=== PATIENT | female | born 1950 | race Caucasian/White ===

== ENCOUNTER 2019-07-30 03:26 | Inpatient (IN) ==
[2019-07-30] MEDS ORDERED: PIPERACILLIN/TAZOBACTAM 3,375 MG in SODIUM CHLORIDE 0.9% 100 ML IV STA (04:06)
[2019-07-30] MEDS ORDERED: ONDANSETRON 4 MG/2 ML VIAL IV ONE (04:06)
[2019-07-30] MEDS ORDERED: MORPHINE 4 MG/1 ML VIAL IV STA (04:06)
[2019-07-30 04:47] LABS: Basophils % 0.2 % (0.0-0.8); Eosinophils % 0.1 % (0.00-10.9); Hemoglobin 14.5 GM/DL (12.0-16.0); Immature Granulocytes % 0.3 %; Immature Granulocytes Absolute 0.04 #; Lymphocytes # 0.8 10*3/uL (1.4-4.0); Mean Corpuscular Volume 86.8 FL (87-102); Mean Platelet Volume 8.7 FL (9.6-12.0); Monocytes % 8.5 % (1.7-12.7); Neutrophils % 83.9 % (38.7-73.9); Platelet Count 290 T/CUMM (130-400); Red Blood Count 5.07 MC/CUMM (3.8-5.5); Red Cell Distribution Width 13.8 % (9.3-17.3); White Blood Count 11.7 T/CUMM (4-12)
[2019-07-30 05:10] LABS: Albumin 3.3 G/DL (3.4-5.0); Bilirubin,Total 0.6 MG/DL (0.2-1.0); Calcium 9.5 MG/DL (8.5-10.1); Osmolality,Calculated 264.4 MOS/KG (273-304); Total Protein 8.4 G/DL (6.4-8.3)
[2019-07-30] MEDS: DEXTROSE 5% NACL 0.45% 1,000 ML IV SCH ×2 (05:55→18:15)
[2019-07-30 09:06] LABS: INR 2.3
[2019-07-30 09:20] LABS: PT Patient Result 24.5 SECS (9.6-12.2)
[2019-07-30] MEDS: PANTOPRAZOLE 40 MG VIAL IV SCH (10:17)
[2019-07-30] MEDS: MORPHINE 4 MG/1 ML VIAL IV PRN ×3 (10:17→19:51)
[2019-07-30] MEDS: clonazePAM 0.5 MG TABLET PO SCH ×3 (11:30→20:36)
[2019-07-30] MEDS: MECLIZINE 12.5 MG TABLET PO SCH ×2 (11:30→20:37)
[2019-07-30] MEDS: GABAPENTIN 300 MG CAPSULE PO SCH ×4 (11:31→20:36)
[2019-07-30] MEDS: LEVOTHYROXINE 75 MCG TABLET PO SCH (11:31)
[2019-07-30] MEDS: ATENOLOL 25 MG TABLET PO SCH (11:31)
[2019-07-30] MEDS: PIPERACILLIN/TAZOBACTAM 3,375 MG in SODIUM CHLORIDE 0.9% 100 ML IV SCH ×2 (13:17→21:10)
[2019-07-30] MEDS ORDERED: WARFARIN 5 MG TABLET PO SCH (18:00)
[2019-07-30] MEDS: ONDANSETRON 4 MG/2 ML VIAL IV PRN (19:51)
[2019-07-30] MEDS: POTASSIUM CHLORIDE 20 MEQ TABLET PO SCH (20:36)
[2019-07-30] MEDS: ASCORBIC ACID 500 MG TABLET PO SCH (20:36)
[2019-07-30] MEDS: CETIRIZINE 10 MG TABLET PO SCH (20:36)
[2019-07-30] MEDS: ACETAMINOPHEN 325 MG TABLET PO PRN (20:37)
[2019-07-31] MEDS: ONDANSETRON 4 MG/2 ML VIAL IV PRN (01:55)
[2019-07-31] MEDS: MORPHINE 4 MG/1 ML VIAL IV PRN ×2 (01:55→14:39)
[2019-07-31 05:11] LABS: Basophils % 0.2 % (0.0-0.8); Hematocrit 41.3 VOL% (35.7-47.0); Hemoglobin 13.4 GM/DL (12.0-16.0); Immature Granulocytes % 0.7 %; Immature Granulocytes Absolute 0.14 #; Lymphocytes # 0.9 10*3/uL (1.4-4.0); Lymphocytes % 4.1 % (21.3-54.2); Mean Corpuscular HGB Conc 32.4 GM/DL (32-36); Mean Corpuscular Volume 86.9 FL (87-102); Mean Platelet Volume 9.2 FL (9.6-12.0); Monocytes % 9.2 % (1.7-12.7); Neutrophils % 85.8 % (38.7-73.9); Platelet Count 281 T/CUMM (130-400); Red Blood Count 4.75 MC/CUMM (3.8-5.5); Red Cell Distribution Width 14.6 % (9.3-17.3); White Blood Count 21.3 T/CUMM (4-12)
[2019-07-31 05:23] LABS: INR 3.3
[2019-07-31 05:32] LABS: PT Patient Result 35.5 SECS (9.6-12.2)
[2019-07-31 05:40] LABS: Albumin 2.5 G/DL (3.4-5.0); Bilirubin,Total 1.2 MG/DL (0.2-1.0); Calcium 8.9 MG/DL (8.5-10.1); Osmolality,Calculated 261.7 MOS/KG (273-304); Total Protein 6.8 G/DL (6.4-8.3)
[2019-07-31 05:41] LABS: Band Neutrophils 4 % (0-10); Lymphocytes 6 % (20-55); Segmented Neutrophils 78 % (50-85); Total Cells Counted 100
[2019-07-31 05:42] LABS: Hypochromasia 1+; Microcytosis Slight
[2019-07-31] MEDS: DEXTROSE 5% NACL 0.45% 1,000 ML IV SCH ×3 (05:50→13:41)
[2019-07-31] MEDS: PIPERACILLIN/TAZOBACTAM 3,375 MG in SODIUM CHLORIDE 0.9% 100 ML IV SCH ×3 (06:10→21:49)
[2019-07-31] MEDS ORDERED: TRIAMTERENE/HCTZ 75-50 MG TABLET PO SCH (09:00)
[2019-07-31] MEDS: PANTOPRAZOLE 40 MG VIAL IV SCH (09:52)
[2019-07-31] MEDS: clonazePAM 0.5 MG TABLET PO SCH ×3 (09:55→21:39)
[2019-07-31] MEDS: LEVOTHYROXINE 75 MCG TABLET PO SCH (09:58)
[2019-07-31] MEDS: POTASSIUM CHLORIDE 20 MEQ TABLET PO SCH ×2 (09:58→21:39)
[2019-07-31] MEDS: ASCORBIC ACID 500 MG TABLET PO SCH ×2 (09:58→21:40)
[2019-07-31] MEDS: CYANOCOBALAMIN 500 MCG TABLET PO SCH (09:58)
[2019-07-31] MEDS: ATENOLOL 25 MG TABLET PO SCH (09:58)
[2019-07-31] MEDS: GABAPENTIN 300 MG CAPSULE PO SCH ×4 (09:58→21:40)
[2019-07-31] MEDS: MULTIVITAMIN (CENTRUM) TABLET PO SCH (09:58)
[2019-07-31 11:29] LABS: Amorphous Crystals,Urine Occasional /HPF (Few); Apearance,Urine Slightly Hazy (Clear); Bacteria,Urine Occasional /HPF (Few); Bilirubin,Urine Negative (Negative); Blood, Urine Small mg/dL (Negative); Glucose,Urine (UA) Negative (Negative); Ketones,Urine Negative (Negative); Mucus,Urine Occasional /LPF (Occasional); Nitrite,Urine Negative (Negative); Protein,Urine Negative; RBC,Urine 16 /HPF (0-4); Squamous Epithelial Cell,Urine Occasional /HPF (0-10); Urine Color Yellow (Yellow); Urine Specific Gravity 1.016 (1.001-1.035); Urine Urobilinogen < 2.0 EU/DL (0.2-1.0); WBC,Urine 15 /HPF (0-6)
[2019-07-31] MEDS: MECLIZINE 12.5 MG TABLET PO SCH ×2 (11:45→21:38)
[2019-07-31] MEDS ORDERED: LACTATED RINGERS 1,000 ML IV ONE (11:54)
[2019-07-31] MEDS ORDERED: PHYTONADIONE 5 MG/5 ML ORAL.SYR PO STA (11:55)
[2019-07-31] MEDS: VANCOMYCIN INJ 1,500 MG in SODIUM CHLORIDE 0.9% 500 ML IV SCH (13:42)
[2019-07-31] MEDS ORDERED: LACTATED RINGERS 500 ML IV ONE (14:35)
[2019-07-31 15:08] LABS: Basophils % 0.1 % (0.0-0.8); Hematocrit 39.9 VOL% (35.7-47.0); Hemoglobin 13.1 GM/DL (12.0-16.0); Immature Granulocytes % 0.6 %; Immature Granulocytes Absolute 0.12 #; Lymphocytes # 1.1 10*3/uL (1.4-4.0); Lymphocytes % 5.3 % (21.3-54.2); Mean Corpuscular HGB Conc 32.8 GM/DL (32-36); Mean Corpuscular Volume 86.9 FL (87-102); Mean Platelet Volume 9.2 FL (9.6-12.0); Monocytes % 8.3 % (1.7-12.7); Neutrophils % 85.7 % (38.7-73.9); Platelet Count 278 T/CUMM (130-400); Red Blood Count 4.59 MC/CUMM (3.8-5.5); Red Cell Distribution Width 14.6 % (9.3-17.3); White Blood Count 20.3 T/CUMM (4-12)
[2019-07-31] MEDS: ACETAMINOPHEN 325 MG TABLET PO PRN (15:15)
[2019-07-31 15:23] LABS: PT Patient Result 32.1 SECS (9.6-12.2)
[2019-07-31] MEDS ORDERED: DEXTROSE 5% NACL 0.9% 1,000 ML IV SCH (15:30)
[2019-07-31 15:37] LABS: Albumin 2.3 G/DL (3.4-5.0); Bilirubin,Total 0.8 MG/DL (0.2-1.0); Calcium 8.7 MG/DL (8.5-10.1); Osmolality,Calculated 257.8 MOS/KG (273-304); Total Protein 6.4 G/DL (6.4-8.3)
[2019-07-31] MEDS ORDERED: PROTHROMBIN COMPLEX IV ONE ×3 (15:55→19:00)
[2019-07-31] MEDS ORDERED: SODIUM CHLORIDE 0.9% 1,000 ML IV PRN (15:55)
[2019-07-31 16:03] LABS: Hypochromasia 1+; Lymphocytes 6 % (20-55); Microcytosis Slight; Platelet Estimate Normal; Segmented Neutrophils 85 % (50-85); Total Cells Counted 100
[2019-07-31] MEDS: DEXTROSE 5% NACL 0.9% 1,000 ML IV SCH ×2 (16:50→23:57)
[2019-07-31] MEDS ORDERED: INDOMETHACIN SUPP 50 MG SUPP RECTAL ONE ×2 (17:15→17:35)
[2019-07-31 18:04] LABS: INR 4.4
[2019-07-31 18:05] LABS: PT Patient Result 47.3 SECS (9.6-12.2)
[2019-07-31] MEDS ORDERED: SUGAMMADEX 200 MG/2 ML VIAL IV ONE (18:44)
[2019-07-31] MEDS ORDERED: MIDAZOLAM 2 MG/2 ML VIAL ONE (19:07)
[2019-07-31] MEDS ORDERED: SEVOFLURANE 1 UNIT/15 MINUTE INH ONE (19:07)
[2019-07-31] MEDS ORDERED: PROPOFOL 200 MG/20 ML VIAL IV ONE (19:07)
[2019-07-31] MEDS ORDERED: LIDOCAINE 2% 5 ML VIAL ONE (19:07)
[2019-07-31] MEDS ORDERED: fentaNYL 100 MCG/2 ML VIAL ONE (19:07)
[2019-07-31] MEDS ORDERED: ROCURONIUM 100 MG/10 ML VIAL IV ONE (19:08)
[2019-07-31] MEDS ORDERED: PHENYLEPHRINE 1 MG/10 ML SYRINGE IV ONE (19:08)
[2019-07-31] MEDS ORDERED: PHYTONADIONE 5 MG/5 ML ORAL.SYR PO ONE (21:00)
[2019-07-31] MEDS: CETIRIZINE 10 MG TABLET PO SCH (21:40)
[2019-07-31] MEDS ORDERED: SODIUM CHLORIDE 0.9% 500 ML IV ONE (23:49)
[2019-08-01] MEDS: VANCOMYCIN INJ 1,500 MG in SODIUM CHLORIDE 0.9% 500 ML IV SCH ×2 (00:35→12:59)
[2019-08-01] MEDS ORDERED: NOREPINEPHRINE 8 MG in SODIUM CHLORIDE 0.9% 242 ML IV PRN (01:56)
[2019-08-01] MEDS: DEXTROSE 5% NACL 0.9% 1,000 ML IV SCH ×3 (04:05→20:13)
[2019-08-01 05:03] LABS: Basophils % 0.1 % (0.0-0.8); Eosinophils % 0.2 % (0.00-10.9); Hematocrit 34.5 VOL% (35.7-47.0); Immature Granulocytes % 0.7 %; Immature Granulocytes Absolute 0.11 #; Lymphocytes % 6.4 % (21.3-54.2); Mean Corpuscular HGB Conc 32.2 GM/DL (32-36); Mean Corpuscular Volume 88.2 FL (87-102); Mean Platelet Volume 9.6 FL (9.6-12.0); Neutrophils % 86.6 % (38.7-73.9); Platelet Count 232 T/CUMM (130-400); Red Blood Count 3.91 MC/CUMM (3.8-5.5); Red Cell Distribution Width 14.8 % (9.3-17.3); White Blood Count 15.2 T/CUMM (4-12)
[2019-08-01 05:05] LABS: Hemoglobin 11.1 GM/DL (12.0-16.0)
[2019-08-01 05:07] LABS: INR 1.1; PT Patient Result 11.4 SECS (9.6-12.2)
[2019-08-01 05:17] LABS: Albumin 1.9 G/DL (3.4-5.0); Bilirubin,Total 0.6 MG/DL (0.2-1.0); Calcium 8.2 MG/DL (8.5-10.1); Osmolality,Calculated 268.2 MOS/KG (273-304); Total Protein 5.6 G/DL (6.4-8.3)
[2019-08-01] MEDS: PIPERACILLIN/TAZOBACTAM 3,375 MG in SODIUM CHLORIDE 0.9% 100 ML IV SCH ×3 (06:04→21:26)
[2019-08-01 06:17] LABS: Free T4 (Free Thyroxine) 1.46 NG/DL (0.76-1.46); Thyroid Stimulating Hormone 0.145 uIU/ml (0.358-3.74)
[2019-08-01] MEDS: clonazePAM 0.5 MG TABLET PO SCH ×2 (08:26→20:15)
[2019-08-01] MEDS: GABAPENTIN 300 MG CAPSULE PO SCH ×4 (08:26→20:15)
[2019-08-01] MEDS: ASCORBIC ACID 500 MG TABLET PO SCH ×2 (08:27→20:15)
[2019-08-01] MEDS: ATENOLOL 25 MG TABLET PO SCH (08:27)
[2019-08-01] MEDS: CYANOCOBALAMIN 500 MCG TABLET PO SCH (08:27)
[2019-08-01] MEDS: LEVOTHYROXINE 75 MCG TABLET PO SCH (08:27)
[2019-08-01] MEDS: PANTOPRAZOLE 40 MG VIAL IV SCH (08:28)
[2019-08-01] MEDS: MULTIVITAMIN (CENTRUM) TABLET PO SCH (08:28)
[2019-08-01] MEDS: POTASSIUM CHLORIDE 20 MEQ TABLET PO SCH ×2 (08:30→20:14)
[2019-08-01] MEDS: MECLIZINE 12.5 MG TABLET PO SCH ×2 (08:31→20:15)
[2019-08-01] MEDS: CETIRIZINE 10 MG TABLET PO SCH (20:14)
[2019-08-01] MEDS: MORPHINE 4 MG/1 ML VIAL IV PRN (21:34)
[2019-08-02] MEDS: VANCOMYCIN INJ 1,500 MG in SODIUM CHLORIDE 0.9% 500 ML IV SCH (01:21)
[2019-08-02] MEDS: DEXTROSE 5% NACL 0.9% 1,000 ML IV SCH ×2 (03:23→06:14)
[2019-08-02] MEDS: PIPERACILLIN/TAZOBACTAM 3,375 MG in SODIUM CHLORIDE 0.9% 100 ML IV SCH ×2 (05:06→17:10)
[2019-08-02 05:18] LABS: Basophils % 0.1 % (0.0-0.8); Eosinophils # 0.1 10*3/uL (0.0-0.87); Eosinophils % 1.2 % (0.00-10.9); Hematocrit 37.4 VOL% (35.7-47.0); Hemoglobin 11.9 GM/DL (12.0-16.0); Immature Granulocytes % 1.1 %; Immature Granulocytes Absolute 0.12 #; Lymphocytes # 0.6 10*3/uL (1.4-4.0); Lymphocytes % 4.9 % (21.3-54.2); Mean Corpuscular HGB Conc 31.8 GM/DL (32-36); Mean Corpuscular Volume 88.8 FL (87-102); Mean Platelet Volume 9.4 FL (9.6-12.0); Monocytes % 9.4 % (1.7-12.7); Neutrophils % 83.3 % (38.7-73.9); Platelet Count 237 T/CUMM (130-400); Red Blood Count 4.21 MC/CUMM (3.8-5.5); Red Cell Distribution Width 14.8 % (9.3-17.3); White Blood Count 11.2 T/CUMM (4-12)
[2019-08-02 05:24] LABS: PT Patient Result 11.3 SECS (9.6-12.2)
[2019-08-02 05:38] LABS: Bilirubin,Total 1.3 MG/DL (0.2-1.0); Calcium 8.2 MG/DL (8.5-10.1); Osmolality,Calculated 273.7 MOS/KG (273-304); Total Protein 5.7 G/DL (6.4-8.3)
[2019-08-02 05:39] LABS: Band Neutrophils 1 % (0-10); Eosinophils 3 % (0-10); Hypochromasia 1+; Lymphocytes 4 % (20-55); Microcytosis Slight; Platelet Estimate Adequate; Segmented Neutrophils 84 % (50-85); Total Cells Counted 100
[2019-08-02] MEDS: LEVOTHYROXINE 75 MCG TABLET PO SCH (08:14)
[2019-08-02] MEDS: MECLIZINE 12.5 MG TABLET PO SCH ×2 (08:14→21:09)
[2019-08-02] MEDS: POTASSIUM CHLORIDE 20 MEQ TABLET PO SCH ×2 (08:14→21:08)
[2019-08-02] MEDS: GABAPENTIN 300 MG CAPSULE PO SCH ×4 (08:14→21:08)
[2019-08-02] MEDS: MULTIVITAMIN (CENTRUM) TABLET PO SCH (08:14)
[2019-08-02] MEDS: clonazePAM 0.5 MG TABLET PO SCH (08:14)
[2019-08-02] MEDS: ATENOLOL 25 MG TABLET PO SCH (08:15)
[2019-08-02] MEDS: ASCORBIC ACID 500 MG TABLET PO SCH ×2 (08:15→21:08)
[2019-08-02] MEDS: CYANOCOBALAMIN 500 MCG TABLET PO SCH (08:15)
[2019-08-02] MEDS: PANTOPRAZOLE 40 MG VIAL IV SCH (08:52)
[2019-08-02] MEDS ORDERED: LIDOCAINE 1%/EPI INJ 20 ML VIAL ONE (12:08)
[2019-08-02] MEDS ORDERED: BUPIVACAINE MPF 0.25% 30 ML VIAL ONE (12:09)
[2019-08-02] MEDS ORDERED: LACTATED RINGERS 1,000 ML IV SCH (13:30)
[2019-08-02] MEDS ORDERED: ONDANSETRON 4 MG/2 ML VIAL IV PRN ×2 (16:03→16:14)
[2019-08-02] MEDS ORDERED: ALBUTEROL/IPRATROPIUM 3 ML NEB RESP TX PRN (16:03)
[2019-08-02] MEDS ORDERED: LIDOCAINE 2% 5 ML VIAL ONE (16:06)
[2019-08-02] MEDS ORDERED: MIDAZOLAM 2 MG/2 ML VIAL ONE (16:06)
[2019-08-02] MEDS ORDERED: PROPOFOL 200 MG/20 ML VIAL IV ONE (16:06)
[2019-08-02] MEDS ORDERED: SEVOFLURANE 1 UNIT/15 MINUTE INH ONE (16:06)
[2019-08-02] MEDS ORDERED: DESFLURANE 1 UNIT/15 MINUTE INH ONE (16:06)
[2019-08-02] MEDS ORDERED: ONDANSETRON 4 MG/2 ML VIAL ONE (16:06)
[2019-08-02] MEDS ORDERED: fentaNYL 100 MCG/2 ML VIAL ONE (16:06)
[2019-08-02] MEDS ORDERED: GLYCOPYRROLATE 0.4 MG/2 ML VIAL ONE (16:07)
[2019-08-02] MEDS ORDERED: ROCURONIUM 100 MG/10 ML VIAL IV ONE (16:07)
[2019-08-02] MEDS ORDERED: NEOSTIGMINE 10 MG/10 ML VIAL ONE (16:07)
[2019-08-02] MEDS ORDERED: HYDROmorphone 2 MG/1 ML VIAL IV PRN (16:14)
[2019-08-02] MEDS: LACTATED RINGERS 1,000 ML IV SCH (17:10)
[2019-08-02] MEDS: WARFARIN 5 MG TABLET PO SCH (17:59)
[2019-08-02] MEDS: CETIRIZINE 10 MG TABLET PO SCH (21:08)
[2019-08-03] MEDS: LACTATED RINGERS 1,000 ML IV SCH ×3 (01:55→14:52)
[2019-08-03] MEDS: PIPERACILLIN/TAZOBACTAM 3,375 MG in SODIUM CHLORIDE 0.9% 100 ML IV SCH ×3 (01:55→17:24)
[2019-08-03] MEDS: clonazePAM 0.5 MG TABLET PO SCH ×3 (02:38→21:29)
[2019-08-03 04:31] LABS: Basophils % 0.1 % (0.0-0.8); Hematocrit 38.6 VOL% (35.7-47.0); Hemoglobin 12.4 GM/DL (12.0-16.0); Immature Granulocytes % 0.6 %; Immature Granulocytes Absolute 0.07 #; Lymphocytes # 0.3 10*3/uL (1.4-4.0); Lymphocytes % 2.8 % (21.3-54.2); Mean Corpuscular HGB Conc 32.1 GM/DL (32-36); Mean Corpuscular Volume 88.5 FL (87-102); Mean Platelet Volume 9.3 FL (9.6-12.0); Monocytes % 6.7 % (1.7-12.7); Neutrophils % 89.8 % (38.7-73.9); Platelet Count 279 T/CUMM (130-400); Red Blood Count 4.36 MC/CUMM (3.8-5.5); Red Cell Distribution Width 14.7 % (9.3-17.3); White Blood Count 12.4 T/CUMM (4-12)
[2019-08-03 04:39] LABS: INR 1.3; PT Patient Result 14.6 SECS (9.6-12.2)
[2019-08-03 04:48] LABS: Albumin 1.9 G/DL (3.4-5.0); Bilirubin,Total 0.7 MG/DL (0.2-1.0); Calcium 8.8 MG/DL (8.5-10.1); Total Protein 5.8 G/DL (6.4-8.3)
[2019-08-03 05:06] LABS: Lymphocytes 2 % (20-55); Platelet Estimate Normal; Segmented Neutrophils 94 % (50-85); Total Cells Counted 100
[2019-08-03] MEDS: KETOROLAC 15 MG/1 ML VIAL IV PRN (06:37)
[2019-08-03] MEDS ORDERED: ENOXAPARIN 40 MG/0.4 ML SYRINGE SUBCUT SCH (09:00)
[2019-08-03] MEDS: PANTOPRAZOLE 40 MG VIAL IV SCH (09:21)
[2019-08-03] MEDS: CYANOCOBALAMIN 500 MCG TABLET PO SCH (09:22)
[2019-08-03] MEDS: ATENOLOL 25 MG TABLET PO SCH (09:22)
[2019-08-03] MEDS: MULTIVITAMIN (CENTRUM) TABLET PO SCH (09:22)
[2019-08-03] MEDS: MECLIZINE 12.5 MG TABLET PO SCH ×2 (09:23→21:29)
[2019-08-03] MEDS: LEVOTHYROXINE 75 MCG TABLET PO SCH (09:23)
[2019-08-03] MEDS: GABAPENTIN 300 MG CAPSULE PO SCH ×4 (09:23→21:07)
[2019-08-03] MEDS: POTASSIUM CHLORIDE 20 MEQ TABLET PO SCH ×2 (09:23→21:07)
[2019-08-03] MEDS: ASCORBIC ACID 500 MG TABLET PO SCH ×2 (14:52→21:07)
[2019-08-03] MEDS: WARFARIN 5 MG TABLET PO SCH (17:24)
[2019-08-03] MEDS: CETIRIZINE 10 MG TABLET PO SCH (21:07)
[2019-08-04] MEDS: PIPERACILLIN/TAZOBACTAM 3,375 MG in SODIUM CHLORIDE 0.9% 100 ML IV SCH ×3 (00:39→18:16)
[2019-08-04] MEDS: LACTATED RINGERS 1,000 ML IV SCH (00:43)
[2019-08-04 05:24] LABS: Basophils % 0.2 % (0.0-0.8); Eosinophils % 0.4 % (0.00-10.9); Hematocrit 34.8 VOL% (35.7-47.0); Hemoglobin 11.3 GM/DL (12.0-16.0); Immature Granulocytes % 0.5 %; Immature Granulocytes Absolute 0.06 #; Lymphocytes % 8.8 % (21.3-54.2); Mean Corpuscular HGB Conc 32.5 GM/DL (32-36); Mean Corpuscular Volume 88.3 FL (87-102); Mean Platelet Volume 9.4 FL (9.6-12.0); Monocytes % 14.7 % (1.7-12.7); Neutrophils % 75.4 % (38.7-73.9); Platelet Count 319 T/CUMM (130-400); Red Blood Count 3.94 MC/CUMM (3.8-5.5); Red Cell Distribution Width 15.1 % (9.3-17.3); White Blood Count 11.3 T/CUMM (4-12)
[2019-08-04 05:35] LABS: INR 2.1
[2019-08-04 05:43] LABS: PT Patient Result 22.4 SECS (9.6-12.2)
[2019-08-04 05:52] LABS: Albumin 1.8 G/DL (3.4-5.0); Bilirubin,Total 0.7 MG/DL (0.2-1.0); Calcium 8.9 MG/DL (8.5-10.1); Total Protein 5.7 G/DL (6.4-8.3)
[2019-08-04] MEDS ORDERED: MAGNESIUM SULF RIDER 4 GM in PREMIX 1 EACH IV PRN (07:03)
[2019-08-04] MEDS ORDERED: MAGNESIUM SULF RIDER 2 GM in PREMIX 1 EACH IV PRN (07:03)
[2019-08-04] MEDS: KETOROLAC 15 MG/1 ML VIAL IV PRN (07:17)
[2019-08-04] MEDS: HYDROmorphone 2 MG/1 ML VIAL IV PRN (08:29)
[2019-08-04] MEDS: PANTOPRAZOLE 40 MG VIAL IV SCH (08:30)
[2019-08-04] MEDS: CYANOCOBALAMIN 500 MCG TABLET PO SCH (08:31)
[2019-08-04] MEDS: ATENOLOL 25 MG TABLET PO SCH (08:31)
[2019-08-04] MEDS: LEVOTHYROXINE 75 MCG TABLET PO SCH (08:31)
[2019-08-04] MEDS: MULTIVITAMIN (CENTRUM) TABLET PO SCH (08:31)
[2019-08-04] MEDS: MECLIZINE 12.5 MG TABLET PO SCH ×2 (08:31→20:13)
[2019-08-04] MEDS: clonazePAM 0.5 MG TABLET PO SCH (08:31)
[2019-08-04] MEDS: GABAPENTIN 300 MG CAPSULE PO SCH ×3 (08:31→20:13)
[2019-08-04] MEDS: POTASSIUM CHLORIDE 20 MEQ TABLET PO SCH ×2 (08:31→20:13)
[2019-08-04] MEDS: ASCORBIC ACID 500 MG TABLET PO SCH ×2 (12:07→20:13)
[2019-08-04] MEDS: FUROSEMIDE 40 MG/4 ML VIAL IV SCH (14:43)
[2019-08-04] MEDS: CETIRIZINE 10 MG TABLET PO SCH (20:13)
[2019-08-05] MEDS: HYDROmorphone 2 MG/1 ML VIAL IV PRN ×2 (00:03→08:37)
[2019-08-05] MEDS: PIPERACILLIN/TAZOBACTAM 3,375 MG in SODIUM CHLORIDE 0.9% 100 ML IV SCH ×3 (00:22→16:08)
[2019-08-05 05:45] LABS: INR 2.7
[2019-08-05 05:50] LABS: PT Patient Result 28.8 SECS (9.6-12.2)
[2019-08-05] MEDS: PANTOPRAZOLE 40 MG VIAL IV SCH (08:34)
[2019-08-05] MEDS: FUROSEMIDE 40 MG/4 ML VIAL IV SCH (08:35)
[2019-08-05] MEDS: MULTIVITAMIN (CENTRUM) TABLET PO SCH (08:36)
[2019-08-05] MEDS: LEVOTHYROXINE 75 MCG TABLET PO SCH (08:36)
[2019-08-05] MEDS: POTASSIUM CHLORIDE 20 MEQ TABLET PO SCH (08:36)
[2019-08-05] MEDS: CYANOCOBALAMIN 500 MCG TABLET PO SCH (08:36)
[2019-08-05] MEDS: MECLIZINE 12.5 MG TABLET PO SCH (08:36)
[2019-08-05] MEDS: ATENOLOL 25 MG TABLET PO SCH (08:36)
[2019-08-05] MEDS: ASCORBIC ACID 500 MG TABLET PO SCH (08:37)
[2019-08-05] MEDS: GABAPENTIN 300 MG CAPSULE PO SCH ×2 (08:37→15:41)
[2019-08-05] MEDS ORDERED: clonazePAM 0.5 MG TABLET PO SCH (09:00)
[2019-08-05] MEDS ORDERED: SIMETHICONE CHEW 125 MG TABLET PO PRN (10:48)
[2019-08-05 12:27] VITALS: BP 107/70
== END 2019-08-05 16:08 | disposition home health service (06) | DRG 412 ==
LOC: EDBD → EDUNIT# → N.ED 03:26 → N.EDINP 04:17 → N.3E 04:53 → N.ICU 07-31 16:45 → N.3E 08-02 10:22
PROVIDERS: ADMIT Surgery; ATTEND Surgery
PROC: ERCPWST (ICD-10-PCS; 2019-07-31 17:05)
PROC: LAPCHOL (2019-08-02 13:12)

== ENCOUNTER 2019-11-01 20:06 | Observation (INO) ==
[2019-11-01] MEDS ORDERED: DOCUSATE SODIUM 100 MG CAPSULE PO PRN (23:29)
[2019-11-01] MEDS ORDERED: ONDANSETRON 4 MG/2 ML VIAL IV PRN (23:29)
[2019-11-01] MEDS ORDERED: guaiFENesin/DM ER 600-30 MG TABLET PO PRN (23:29)
[2019-11-01] MEDS ORDERED: diphenhydrAMINE CAP 25 MG CAPSULE PO PRN (23:29)
[2019-11-01] MEDS ORDERED: ACETAMINOPHEN 325 MG TABLET PO PRN (23:29)
[2019-11-01] MEDS ORDERED: ZALEPLON 5 MG CAPSULE PO PRN (23:29)
[2019-11-01 23:34] LABS: Basophils % 0.1 % (0.0-0.8); Hemoglobin 11.6 GM/DL (12.0-16.0); Immature Granulocytes % 0.4 %; Immature Granulocytes Absolute 0.06 #; Lymphocytes # 0.3 10*3/uL (1.4-4.0); Lymphocytes % 2.2 % (21.3-54.2); Mean Corpuscular HGB Conc 30.5 GM/DL (32-36); Mean Corpuscular Volume 90.9 FL (87-102); Mean Platelet Volume 8.6 FL (9.6-12.0); Monocytes % 5.2 % (1.7-12.7); Neutrophils % 92.1 % (38.7-73.9); Platelet Count 273 T/CUMM (130-400); Red Blood Count 4.18 MC/CUMM (3.8-5.5); Red Cell Distribution Width 16.5 % (9.3-17.3); White Blood Count 14.9 T/CUMM (4-12)
[2019-11-01] MEDS ORDERED: hydrALAZINE 20 MG/1 ML VIAL IV PRN (23:34)
[2019-11-01] MEDS ORDERED: NITROGLYCERIN SL 0.4 MG TABLET SL PRN (23:34)
[2019-11-01 23:49] LABS: Calcium 8.8 MG/DL (8.5-10.1); Osmolality,Calculated 266.4 MOS/KG (273-304)
[2019-11-02] MEDS ORDERED: FAMOTIDINE 20 MG/2 ML VIAL IV SCH (00:30)
[2019-11-02] MEDS ORDERED: POTASSIUM CHLORIDE RIDER 10 MEQ in PREMIX 1 EACH IV PRN (00:33)
[2019-11-02] MEDS: PANTOPRAZOLE 40 MG VIAL IV SCH ×2 (01:45→08:58)
[2019-11-02 01:58] LABS: Anisocytosis 1+; Band Neutrophils 2 % (0-10); Lymphocytes 2 % (20-55); Segmented Neutrophils 92 % (50-85); Total Cells Counted 100
[2019-11-02 01:59] LABS: Platelet Estimate Normal
[2019-11-02] MEDS ORDERED: ENOXAPARIN 100 MG/ML SYRINGE SUBCUT ONE (02:30)
[2019-11-02 03:03] LABS: Apearance,Urine CLEAR (Clear); Bilirubin,Urine Negative (Negative); Blood, Urine Negative (Negative); Glucose,Urine (UA) Negative (Negative); Ketones,Urine Negative (Negative); Nitrite,Urine Negative (Negative); Protein,Urine Negative; RBC,Urine 1 /HPF (0-4); Urine Color Amber (Yellow); Urine Specific Gravity 1.015 (1.001-1.035); WBC,Urine 15 /HPF (0-6)
[2019-11-02] MEDS: POTASSIUM CHLORIDE 20 MEQ TABLET PO SCH ×2 (03:24→09:02)
[2019-11-02 06:11] LABS: INR 1.9; PT Patient Result 20.5 SECS (9.6-12.2)
[2019-11-02 06:12] LABS: Calcium 8.6 MG/DL (8.5-10.1); Osmolality,Calculated 263.4 MOS/KG (273-304)
[2019-11-02 06:16] LABS: Partial Thromboplastin Time 52.3 SECS (20.8-36.0)
[2019-11-02] MEDS ORDERED: LEVOTHYROXINE 75 MCG TABLET PO SCH (07:00)
[2019-11-02 08:19] LABS: Risk Ratio 2.18; VLDL CHOLESTEROL 9.8 MG/DL
[2019-11-02] MEDS ORDERED: ASCORBIC ACID 500 MG TABLET PO SCH (09:00)
[2019-11-02] MEDS ORDERED: ENOXAPARIN 40 MG/0.4 ML SYRINGE SUBCUT SCH (09:00)
[2019-11-02] MEDS ORDERED: atenoloL 25 MG TABLET PO SCH (09:00)
[2019-11-02] MEDS ORDERED: PANTOPRAZOLE 40 MG TABLET PO SCH (09:00)
[2019-11-02] MEDS ORDERED: FERROUS SULFATE 325 MG TABLET PO SCH (09:00)
[2019-11-02 12:32] VITALS: BP 107/47
[2019-11-02] MEDS ORDERED: WARFARIN 3 MG TABLET PO SCH (18:00)
[2019-11-02] MEDS ORDERED: CETIRIZINE 10 MG TABLET PO SCH (21:00)
[2019-11-02] MEDS ORDERED: SIMVASTATIN 40 MG TABLET PO SCH (21:00)
== END 2019-11-02 13:56 | disposition home or self-care (01) ==
LOC: N.2W
PROVIDERS: ADMIT Internal Medicine; ATTEND Internal Medicine